=== PATIENT | female | born 1990 | race Caucasian/White ===

== ENCOUNTER 2016-05-02 15:43 | Emergency (ER) | payer BC ==
--- NOTE | ~2016-05-02 | ER ---
PATIENT'S NAME: JUAN F [facility] AGE: 26 Y [address] ROOM: [place] [address] LOCATION: [facility] ADMIT DATE: 05/02/2016 ER/Outpatient Report DISCHARGE DATE: 05/02/2016 FAMILY PHYSICIAN: PHYSICIAN, NO ATTENDING PHYSICIAN: Raul Maravilla CHIEF COMPLAINT: Knee pain. HISTORY OF PRESENT ILLNESS: The patient was playing soccer earlier today when she planted on her left leg to try to kick the ball, she felt a pop, and immediately had pain. She remained on the ground nonambulatory. EMS was contacted, they evaluated the patient, placed her on a splint and ice, and brought her in. She states she has never had anything like this before and is otherwise healthy. No other acute issues and she did not fall or strike her head. She has a history of stomach ulcers. She has not had any medications for this other than some fentanyl per EMS. No other acute issues. PAST MEDICAL HISTORY: Documented on the record and reviewed by me. SOCIAL HISTORY: Documented on the record and reviewed by me. MEDICATIONS: Documented on the record and reviewed by me. ALLERGIES: DOCUMENTED ON THE RECORD AND REVIEWED BY ME. REVIEW OF SYSTEMS: All systems were reviewed and negative except as noted in the HPI. PHYSICAL EXAMINATION: VITAL SIGNS: Blood pressure 127/60, pulse 82, respiratory rate 18, temp 98.4, and SpO2 is 100% on room air. Pain is rated 4/10. GENERAL: Age-appropriate female, in obvious pain, no respiratory distress, lying on exam table. HEENT: Normocephalic, atraumatic. Eyes are PERRL. Oropharynx clear. NECK: Supple. Trachea is midline. CHEST: Heart is regular rate and rhythm. No murmurs. LUNGS: Clear to auscultation bilaterally with no rhonchi, wheezes, or rales. ABDOMEN: Soft, nontender, and nondistended. No rebound or guarding. BACK: Nontender to palpation throughout. No CVA tenderness. [facility]: [facility] AGE: 26 Y [address] ROOM: [place] [address] LOCATION: [facility] ADMIT DATE: 05/02/2016 ER/Outpatient Report DISCHARGE DATE: 05/02/2016 FAMILY PHYSICIAN: PHYSICIAN, NO ATTENDING PHYSICIAN: Raul Maravilla SKIN: Warm, dry, and intact. EXTREMITIES: The upper and right lower extremities are unremarkable. Left lower extremity is in a splint. This was removed and reveals lateral subluxed patella. This was replaced and the knee exam was otherwise normal. Slight joint effusion. There is no crepitus on exam. The patient was placed through the range of motion with some discomfort, but no significant pain. No ligamentous instability of the ACL, PCL, MCL, or LCL. No posterior masses in the knee. The foot was neurovascularly intact. She is able to wiggle her toes, move her ankle, and place pressure on the knee without significant pain. LABS AND X-RAYS: X-rays of the left knee were obtained and they were normal to my read. IMPRESSION: Dislocated patella, status post reduction. EMERGENCY DEPARTMENT COURSE: The patient was evaluated as above. Upon evaluation, I was able to hyperextend the knee and replace the patella with hardly any force at all. The patient had immediate improvement in her symptoms. X-rays were obtained to exclude any chip fractures, which I did not see. She was placed in a knee immobilizer splint, given crutches, and some antiinflammatory with Tylenol in the ER. Given her history of stomach ulcers, ibuprofen is likely not a good choice for her. Recommend ice and Tylenol for pain management. Lortab for breakthrough pain. She should use crutches and the knee immobilizer as needed. Recommend she follow up with local provider in [place] for further evaluation as needed. The patient lives in [place] and thus I deferred followup for her to arrange at her convenience. Weight bear as tolerated. MD UZAIR CADET/shaun /[id number] d: 05/02/16 2251 t: 05/04/16 1054, OUTPATIENT REPORT
== END 2016-05-02 16:23 | disposition disaster alternative care site (69) ==
LOC: GACC 15:43
PROC: 0SSDXZZ Reposition Left Knee Joint, External Approach (ICD-10-PCS; principal; 2016-05-02)
DX: S83.005A Unspecified dislocation of left patella, initial encounter (principal); X50.9XXA Other and unspecified overexertion or strenuous movements or postures, initial encounter; Y93.66 Activity, soccer

== ENCOUNTER → 2016-05-02 | Outpatient (CLI) | payer BC | END | disposition disaster alternative care site (69) | LOC: GAMB 15:17 | DX: M25.562 Pain in left knee (principal); M22.8X2 Other disorders of patella, left knee | CPT/HCPCS: A0425; A0427; J3010 ==